=== PATIENT | female | born 1965 | race American Indian/Alaskan Native ===

== ENCOUNTER 2019-09-01 09:09 | Outpatient (CLI) | payer MEDICARE ==
--- NOTE | 2019-09-01 11:10 | Ultrasound Report ---
ULTRASOUND ABDOMEN, COMPLETE INDICATION: R94.5 LFT ELEVATION/ABNORMAL LIVER FUNCTION TEST. COMPARISON: None available. FINDINGS: Pancreas: Normal. Abdominal Aorta: Normal. IVC: Normal. Liver: Coarse echotexture. No focal lesion. Gallbladder: Thickened gallbladder wall measuring 5 mm. No gallstones identified. Bile ducts: Normal. Common Bile Duct measures 4 mm. Right Kidney: Normal. Left Kidney: Normal. Spleen: Normal. Free fluid: None. Additional Findings: None. IMPRESSION: 1. Nonspecific gallbladder wall thickening. Further evaluation could be obtained with HIDA scan as cl inically indicated. 2. Coarse echotexture of the liver compatible with underlying hepatocellular disease. Signer Name: Jad Blood MD Signed: 09/01/2019 11:06 AM Workstation Name: [id number]
== END 2019-09-01 09:10 | disposition home or self-care (01) ==
LOC: US 09:09
PROVIDERS: ATTEND Internal Medicine Gastroenterology
DX: R94.5 Abnormal results of liver function studies (principal)
CPT/HCPCS: 76700